=== PATIENT | female | born 1955 | race Caucasian/White ===

== ENCOUNTER → 2016-10-20 | Outpatient (CLI) | payer MEDICARE, MEDICAID ==
[~2016-10-20] MED LIST: ACYC5OIN4 TOPICAL; ADDE20 PO; AMBI12.5 PO; AMIT24CA5 PO; DIAZ5 PO; DICL1GEL3 TOPICAL; FOSA70TA PO; IBUP800T23 PO; MELO-1 PO; MOBI15TA PO; VALA1TAB PO; ZOSTCRE TOPICAL
== END ==
LOC: CLAB 10:51
PROVIDERS: ATTEND Family Medicine
DX: M81.0 Age-related osteoporosis without current pathological fracture (principal); E83.51 Hypocalcemia; E87.5 Hyperkalemia
CPT/HCPCS: 36415; 80061; 82306; 82310

== ENCOUNTER → 2017-02-27 | Outpatient (CLI) | payer MEDICARE, MEDICAID ==
[~2017-02-27] MED LIST changes: -AMBI12.5 PO; -AMIT24CA5 PO; +AMIT24CA9 PO; +DENO60P SQ; -DIAZ5 PO; -DICL1GEL3 TOPICAL; +FLUV50TA PO; -FOSA70TA PO; +IBUP1TAB7 PO; -IBUP800T23 PO; -MELO-1 PO; +OMEP20TA93 PO; +TEMA30CA PO; -ZOSTCRE TOPICAL
[2017-02-27 16:24] LABS: ALT (GPT) 29 U/L (10-53); ANION GAP 4 MEQ/L (5-15); AST (GOT) 25 U/L (15-37); BICARBONATE 31.9 MEQ/L (21.0-32.0); BLOOD UREA NITROGEN 21 MG/DL (7-18); CHLORIDE 107 MEQ/L (98-107); GLOMERULAR FILTRATION RATE 76 ML/MIN (>89); GLUCOSE,FASTING 88 MG/DL (74-99); POTASSIUM 3.7 MEQ/L (3.5-5.1); SODIUM (NA) 143 MEQ/L (136-145)
[2017-02-27 16:27] LABS: ALKALINE PHOSPHATASE 80 U/L (45-117); TOTAL BILIRUBIN ADULT 0.3 MG/DL (0.2-1.0)
[2017-03-01 09:42] LABS: HEMOGLOBIN A1a 1.2 %; HEMOGLOBIN A1b 1.8 %; HEMOGLOBIN Ao 84.7 %; HEMOGLOBIN LA1C 2.1 %
== END ==
LOC: CLAB 15:36
PROVIDERS: ATTEND Psychiatry & Neurology Neurology
DX: M62.830 Muscle spasm of back (principal); D18.09 Hemangioma of other sites; R73.01 Impaired fasting glucose; M51.9 Unspecified thoracic, thoracolumbar and lumbosacral intervertebral disc disorder; S23.9XXA Sprain of unspecified parts of thorax, initial encounter; S33.5XXA Sprain of ligaments of lumbar spine, initial encounter; S13.9XXA Sprain of joints and ligaments of unspecified parts of neck, initial encounter; X58.XXXA Exposure to other specified factors, initial encounter; Z22.9 Carrier of infectious disease, unspecified; Z13.818 Encounter for screening for other digestive system disorders
CPT/HCPCS: 36415; 80053; 83036

== ENCOUNTER 2017-04-26 11:43 | Emergency (ER) | payer OTHER, MEDICARE, MEDICAID ==
[~2017-04-26] VITALS: Ht 162.6 cm; Wt 57.0 kg
[~2017-04-26 11:43] MED LIST changes: -ACYC5OIN4 TOPICAL; -AMIT24CA9 PO; -OMEP20TA93 PO; -VALA1TAB PO
[2017-04-26 12:54] VITALS: BP 127/63; PULSE 89; RESP 18; TEMP 99; O2SAT 98
--- NOTE | 2017-04-26 12:57 | RADRPT ---
EXAM DATE/TIME: 04/26/2017 12:45 [place] COMPARISON: No previous studies available for comparison. INDICATIONS : Fell, has left ankle pain, swelling MEDICAL HISTORY : None. SURGICAL HISTORY : None. ENCOUNTER: Initial ACUITY: 2 days PAIN SCORE: 8/10 LOCATION: Left ankle FINDINGS: 3 views left ankle. Prominent lateral soft tissue swelling. Nondisplaced horizontal fracture of the d istal lateral malleolus. Ankle mortise intact. Alignment within normal limits. CONCLUSION: Nondisplaced horizontal fracture of the distal lateral malleolus. Heriberto Paulino MD on April 26, 2017 at 12:53 Board Certified Radiologist. This report was verified electronically.
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
== END 2017-04-26 13:31 | disposition home or self-care (01) ==
LOC: PHED 11:43
DX: S82.892A Other fracture of left lower leg, initial encounter for closed fracture (principal); W18.39XA Other fall on same level, initial encounter; Y93.41 Activity, dancing; G83.89 Other specified paralytic syndromes
CPT/HCPCS: 73610; 99283

== ENCOUNTER → 2017-09-24 | Outpatient (CLI) | payer MEDICARE, MEDICAID ==
[~2017-09-24] MED LIST changes: -DENO60P SQ; -FLUV50TA PO; -IBUP1TAB7 PO; -MOBI15TA PO
[2017-09-24 12:20] LABS: RHEUMATOID FACTOR SCREEN NEGATIVE (NEGATIVE)
== END ==
LOC: CLAB 10:41
DX: M25.531 Pain in right wrist (principal)
CPT/HCPCS: 36415; 86430